=== PATIENT | female | born 1935 | race Caucasian/White ===

== ENCOUNTER 2024-03-19 20:42 | Emergency (ER) | payer MEDICARE, OTHER, SELFPAY ==
--- NOTE | 2024-03-19 | ECG_ITS ---
Test Reason : FALL Blood Pressure : / mmHG Vent. Rate : 074 BPM Atrial Rate : 074 BPM P-R Int : 168 ms QRS Dur : 144 ms QT Int : 456 ms P-R-T Axes : 058 048 085 degrees QTc Int : 506 ms Normal sinus rhythm Left bundle branch block Abnormal ECG No previous ECGs available Referred By: Generic ED Physician Electronically Signed By:MACHO ZARAGOZA
--- NOTE | ~2024-03-19 | CT_ITS ---
EXAMINATION: CT head/brain wo IV con CT cervical spine wo IV con INDICATION INFORMATION: Fall COMPARISON: None TECHNIQUE: Separate noncontrast CT examinations of the head and cervical spine were performed. Coronal and sagittal reformats were obtained at the acquisition workstation. This CT examination was performed using dose optimization techniques as appropriate, variously including the following: * Automated exposure control * Adjustment of mA and/or kV according to patient size (this includes techniques or standardized protocols for targeted exams where dose is matched to indication/reason for exam; i.e. extremities or head) * Use of iterative reconstruction technique DLP: 1020 mGy-cm FINDINGS: HEAD: There is no evidence of acute intracranial hemorrhage or territorial infarction. Langston to white matter differentiation is well preserved. No abnormal mass effect or midline shift is seen. No extra-axial fluid collections are identified. No hydrocephalus. Mineralizations in the bilateral basal ganglia. Proportional prominence of the ventricles and sulcal spaces is consistent with mild volume loss. Patchy periventricular and deep white matter hypoattenuation is consistent with mild small vessel ischemic changes. The cerebellar tonsils are well positioned. No acute osseous or soft tissue abnormality. Mild hyperostosis frontalis interna. Bilateral lens extraction. The mastoid air cells and visualized portions of the paranasal sinuses are well aerated. CERVICAL SPINE: No evidence of acute fracture or traumatic subluxation of the cervical spine. There is straightening of the normal cervical curvature. Mild anterolisthesis of C4 on C5. Vertebral body heights are maintained. There is multilevel intervertebral disc space narrowing with endplate osteophyte formation. Multilevel facet arthropathy. Moderate atlantodental spondylosis. Exuberant calcification of the bilateral ligamentum flavum at the level of C5 results in mild canal stenosis. The atlantoaxial and atlantooccipital articulations are intact. No prevertebral soft tissue swelling. There is no cervical lymphadenopathy. The visualized thyroid gland is unremarkable. The visualized lung apices are clear. CT/CT cervical spine wo IV con IMPRESSION: 1. No acute intracranial pathology. Mild chronic microangiopathy and generalized volume loss. 2. No acute osseous abnormality within the cervical spine. Mild multilevel degenerative changes.
--- NOTE | ~2024-03-19 | XR_ITS ---
EXAMINATION: XR KNEE, RIGHT CLINICAL INFORMATION: Fall. COMPARISON: None available. TECHNIQUE: AP and lateral views of the right knee. FINDINGS: Bones are osteopenic. No fracture or malalignment. No joint effusion. Enthesopathic spurs are present at the quadriceps tendon insertion on the patella and patellar tendon origin. Minimal osteoarthritis in patellofemoral and medial compartments. Soft tissues are swollen. Atherosclerotic calcifications are present in the distal superficial femoral artery. XR/XR knee RT 2V IMPRESSION: 1. No acute fracture or malalignment. 2. Soft tissue swelling.
[2024-03-19 20:50] VITALS: BP 110/78; BP 114/51; PULSE 70; PULSE 75; RESP 18; O2SAT 95; O2SAT 97; BMI 29.1
[2024-03-19 20:57] VITALS: BP 114/51; PULSE 80; RESP 17; TEMP 36.4; O2SAT 99
[2024-03-19 21:23] LABS: MANUAL DIFF FLAG NO
[2024-03-19 21:29] LABS: INTERNATIONAL NORM RATIO 1.1 (0.9-1.1); Prothrombin Time 13.2 SEC (11.1-13.3)
[2024-03-19 21:30] LABS: Basophils Percent Auto 0.5 % (0-2); Eosinophils Absolute Auto 0.2 X10*3/uL (0.0-0.4); Eosinophils Percent Auto 3.5 % (0-4); Hematocrit 32.6 % (37.0-47.0); Hemoglobin 11.5 g/dl (12.0-16.0); Imm Gran Abs Auto 0.01 X10*3/uL (0.00-0.03); Imm Gran Pct Auto 0.2 % (0.0-0.4); Lymphocytes Absolute Auto 1.6 X10*3/uL (1.2-4.9); Lymphocytes Percent Auto 26.9 % (20-40); Mean Corpuscular HGB Conc 35.3 g/dl (31.0-35.0); Mean Corpuscular Volume 87.9 fL (80.0-98.0); Mean Platelet Volume 9.8 fL (9.4-12.3); Monocytes Absolute Auto 0.5 X10*3/uL (0.1-1.2); Monocytes Percent Auto 8.4 % (2-11); Neutrophils Absolute Auto 3.7 x10*3/uL (2.0-8.3); Neutrophils Percent Auto 60.5 % (45-73); Platelet Count 123 X10*3/uL (160-400); Red Blood Count 3.71 X10*6/uL (4.20-5.50); Red Cell Distribution Width 13.8 % (11.0-16.0); White Blood Count 6.1 X10*3/uL (4.8-10.8)
[2024-03-19 21:36] LABS: Anion Gap 16 (12-20); Blood Urea Nitrogen 46 mg/dL (9-16); Calcium 9.5 mg/dL (8.4-10.2); Carbon Dioxide 22 mmol/L (22-29); Chloride 108 mmol/L (96-108); Creatinine Clr Calc Pharmacy 25.3; Estimated Glomerular Filt Rate 33; Glucose Random 185 mg/dL (60-115); Potassium 4.1 mmol/L (3.3-5.1); Sodium 142 mmol/L (135-145)
[2024-03-19 21:44] LABS: Troponin-I High Sensitivity 27.6 ng/L (<3.5-17.0)
--- NOTE | 2024-03-19 22:46 | ED_ITS ---
HPI - General Adult General Chief complaint: Fall Stated complaint: unwitnessed fall Time Seen by Provider: 03/19/24 22:46 Source: patient, EMS, RN notes reviewed and other ([facility] staff) Mode of arrival: EMS Limitations: altered mental status History of Present Illness ED Provider: Oswald Crowley NP HPI narrative: Patient is an 89-year-old female with history of dementia, CKD stage 3, CHF, T2DM presenting to the emergency department via EMS from [facility] after a witnessed fall prior to arrival. Staff reports that she was ambulating with walker when she tripped and fell against a door, slid to the floor while leaning against the door. Positive head strike. Also report that right knee hit against the door at the time of the fall. Denies loss of consciousness. She has not anticoagulated. Patient denies any complaints. C-collar applied by EMS. MD complaint: head injury Onset (ago): hour(s) Location: head Associated symptoms: denies other symptoms Related Data Allergies Allergy/AdvReac Type Severity Reaction Status Date / Time CHARLES Inhibitors Allergy Unknown Verified 03/19/24 20:56 NSAIDS (Non-Steroidal AdvReac Unknown Verified 03/19/24 20:56 Anti-Inflamma Review of Systems 2 Review of Systems: As per HPI Yes all other systems are reviewed and are negative Constitutional: Constitutional: Reports as per HPI [facility] Social History Social History Alcohol intake: never Smoked in Last 30 Days: No Use of substances other than those prescribed or required for medical reasons: No Advance Directives: No Advance Directives Information Provided: Yes Do you have a plan to hurt others: No Plan Physical Exam ED Vital Signs: Vital Signs - 24 hr 03/19/24 20:50 03/19/24 20:57 Temperature 97.5 F Pulse Rate 75 80 Respiratory Rate 18 17 Blood Pressure 114/51 L 114/51 L Pulse Oximetry 95 99 Oxygen Delivery Method Room Air Room Air BMI result Body Mass Index 29.1 Vital signs have been reviewed and appear to be correct. Blood pressure normal. Heart rate normal. Respiratory rate normal. Temperature normal. Oxygen saturation normal. Const General: cooperative and no acute distress Orientation/consciousness: oriented to person Limitations: altered mental status HENMT Head: Yes normal to inspection, Yes normocephalic, Yes atraumatic, No Jewell's sign, No raccoon eyes and No periorbital ecchymosis Ears: external ears normal, TM's normal bilaterally and EAC's normal General nose exam: Normal external nose present, Normal nasal mucous membranes and turbinates present and Normal septum present Face and sinus: Yes face symmetric Mouth: oropharynx normal and moist mucous membranes Throat: Yes uvula midline Eyes Pupils: Equal, round and reactive pupils present Neck Neck: Yes normal visual inspection and Yes supple Resp Effort & Inspection: normal respiratory effort and able to speak in complete sentences Auscultation: clear to auscultation bilaterally Cardio Rate: regular rate Rhythm: regular rhythm Heart sounds: S1 normal heart sound present and S2 normal heart sound present GI Palpation (GI): Soft to palpation and nontender Auscultation: normoactive bowel sounds General: Yes no CVA tenderness Back/Spine/Pelvis Back: no CVA tenderness Skin General skin exam: elasticity normal and turgor normal Neuro General: oriented to person, tone normal, moves all extremities, Normal light touch and pain sensation, no focal motor deficits, CN's II-XI intact bilaterally and deep tendon reflexes 2+ bilaterally Cranial nerves: Yes Equal, round and reactive pupils present Cognition (Neuro): normal cognition Motor exam (neuro): 5/5 motor strength present throughout Extrem General: Yes full ROM, Yes no pedal edema and Yes no calf tenderness Right lower extremity: knee Details: normal ROM and abrasion knee anterior Details: single; no tenderness Left lower extremity: knee Details: normal ROM and abrasion knee anterior Details: single; no tenderness Psych Mental Status: mental status grossly normal Affect: normal affect Thought process: Normal thought process present Medical Decision Making Medical Decision Making MDM Narrative: Patient is an 89-year-old female with history of dementia, CKD stage 3, CHF, T2DM presenting to the emergency department via EMS from [facility] after a witnessed fall prior to arrival. On exam patient is awake, A+Ox3, VS WNL, afebrile, normal neurological exam without focal deficits, physical exam findings as above. Given reported symptoms and physical exam findings, initial differential includes ICH, skull or cervical vertebral fracture or subluxation, bilateral knee contusions versus right knee fracture. Labs notable for slight anemia, elevated BUN and creatinine likely secondary to chronic kidney disease, elevated troponin also likely due to chronic kidney disease but will obtain repeat. Repeat troponin downtrending. EKG shows normal sinus rhythm. X-ray right knee notable for no acute fracture, soft tissue swelling. CT head and C- spine notable for no acute intracranial pathology, no acute osseous abnormality within the C-spine. My interpretation is in agreement with the radiologist's interpretation. Feel patient is stable for discharge back to [facility] at this time. Return precautions discussed with staff who verbalized understanding of plan. Differential Diagnosis Differential Diagnoses: The differential diagnosis associated with the presentation includes As per [facility]. Admission/Observation Consideration of admission/observation: Escalation of care including admission/observation considered Patient would have been admitted to the hospital had their work up had any findings where hospital admission was appropriate and their clinical presentation warranted hospital admission. Lab Data [facility] Lab Attestation statement: I reviewed the patient's lab results. As per [facility]. 03/19/24 21:18 03/19/24 21:18 Labs: Lab Results 03/19/24 03/20/24 Range/Units 21:18 00:11 WBC 6.1 (4.8-10.8) X10*3/uL RBC 3.71 L (4.20-5.50) X10*6/uL Hgb 11.5 L (12.0-16.0) g/dl Hct 32.6 L (37.0-47.0) % MCV 87.9 (80.0-98.0) fL MCH 31.0 (27.0-33.0) pg MCHC 35.3 H (31.0-35.0) g/dl RDW 13.8 (11.0-16.0) % Plt Count 123 L (160-400) X10*3/uL MPV 9.8 (9.4-12.3) fL Immature Gran % (Auto) 0.2 (0.0-0.4) % Neut % (Auto) 60.5 (45-73) % Lymph % (Auto) 26.9 (20-40) % [place] % (Auto) 8.4 (2-11) % Eos % (Auto) 3.5 (0-4) % Baso % (Auto) 0.5 (0-2) % Lymph # (Auto) 1.6 (1.2-4.9) X10*3/uL [place] # (Auto) 0.5 (0.1-1.2) X10*3/uL Eos # (Auto) 0.2 (0.0-0.4) X10*3/uL Baso # (Auto) 0.0 (0.0-0.2) X10*3/uL Abs Immat Gran (auto) 0.01 (0.00-0.03) X10*3/uL Absolute Neuts (auto) 3.7 (2.0-8.3) x10*3/uL Absolute Nucleated RBC 0.000 (0.0-0.012) X10*3/uL Nucleated RBC % (auto) 0.0 (0.0-0.2) /100WBC PT 13.2 (11.1-13.3) SEC INR 1.1 (0.9-1.1) Sodium 142 (135-145) mmol/L Potassium 4.1 (3.3-5.1) mmol/L Chloride 108 (96-108) mmol/L Carbon Dioxide 22 (22-29) mmol/L Anion Gap 16 (12-20) BUN 46 H (9-16) mg/dL Creatinine 1.51 H (0.5-1.4) mg/dL Estim Creat Clear Calc 25.3 Estimated GFR 33 Random Glucose 185 H (60-115) mg/dL Calcium 9.5 (8.4-10.2) mg/dL Troponin I High Sens 27.6 H 25.7 H (<3.5-17.0) ng/L Independent Interpretation I performed an independent interpretation of an: EKG (Normal sinus rhythm, rate 74 beats per minute, normal DC interval, prolonged QTc), Plain X-Ray and CT Scan Interpretation: X-ray right knee notable for no acute fracture, soft tissue swelling. CT head and C-spine notable for no acute intracranial pathology, no acute osseous abnormality within the C-spine. Radiology Impression Discussion of test interpretation with radiology: I have reviewed the radiologist's reading. Radiologist Impression: CT/CT head/brain wo IV con IMPRESSION: 1. No acute intracranial pathology. Mild chronic microangiopathy and generalized volume loss. 2. No acute osseous abnormality within the cervical spine. Mild multilevel degenerative changes. XR/XR knee RT 2V IMPRESSION: 1. No acute fracture or malalignment. 2. Soft tissue swelling. Independent Historian Clinical information obtained from an independent historian. History obtained from or confirmed by: Other ([facility] staff) External Record Review External record reviewed: Inpatient record, Office record and Outpatient record Discharge Plan Discharge Clinical Impression: Contusion of knee, right, Fall Patient Disposition: er Psychiatric [facility]osp Transfer Details: return to [facility] Instructions: Contusion in Adults (ED), Fall Prevention (ED), Fall Prevention for Older Adults (ED) Additional Instructions: You have been evaluated in the emergency department today for head injury after a fall. Your CT scan did not show signs of bleed or fractures in your head or fractures in your neck. We recommend you take Tylenol 650 mg every 6 hours as needed for pain. Please schedule an appointment with for follow-up with your primary care provider as soon as possible. Return to the emergency department if you experience worsening or uncontrolled pain, vision changes, recurrent vomiting, difficulty with normal activities, abnormal behavior, difficulty walking, numbness, weakness, or any other concerning symptoms. Print Language: Italian
[2024-03-20 00:34] LABS: Troponin-I High Sensitivity 25.7 ng/L (<3.5-17.0)
== END 2024-03-20 02:30 ==
PROVIDERS: Registered Nurse Emergency; Emergency Provider Emergency Medicine
DX: S80.01XA Contusion of right knee, initial encounter (principal); W22.8XXA Striking against or struck by other objects, initial encounter; E11.22 Type 2 diabetes mellitus with diabetic chronic kidney disease; I13.0 Hypertensive heart and chronic kidney disease with heart failure and stage 1 through stage 4 chronic kidney disease, or unspecified chronic kidney disease; N18.30 Chronic kidney disease, stage 3 unspecified; I50.9 Heart failure, unspecified; Y93.01 Activity, walking, marching and hiking; Y92.128 Other place in nursing home as the place of occurrence of the external cause; Y99.9 Unspecified external cause status
CPT/HCPCS: 36415; 70450; 72125; 73560; 80048; 84484; 85025; 85610; 93005; 99284

== ENCOUNTER → 2024-03-19 21:08 | Outpatient (BNV) | payer MEDICARE, OTHER, SELFPAY | PROVIDERS: Emergency Provider Emergency Medicine; Visit Provider Internal Medicine | DX: I44.7 Left bundle-branch block, unspecified (principal); R94.31 Abnormal electrocardiogram [ECG] [EKG] | CPT/HCPCS: 93010 ==